=== PATIENT | male | born 1970 | race Caucasian/White ===

== ENCOUNTER 2016-12-06 18:32 | Emergency (ER) | payer SELFPAY ==
[~2016-12-06] VITALS: Ht 172.7 cm; Wt 74.8 kg
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
[2016-12-06] MEDS ORDERED: HYDROCODONE/APAP 10/325MG 1 EA TABLET PO ONE (19:00)
[2016-12-06] MEDS ORDERED: HYDROCODONE/APAP 10/325MG 1 EA TABLET ONE (19:13)
--- NOTE | 2016-12-06 20:07 | NUR ---
CALLED MARY TO READ CT
--- NOTE | 2016-12-06 21:06 | NUR ---
Patient discharged to home in stable condition. Written and verbal after care instructions given. Patient verbalizes understanding of instruction.
[2016-12-06 21:08] VITALS: BP 141/77
== END 2016-12-06 21:09 | disposition home or self-care (01) ==
LOC: ER 18:34
DX: S02.2XXA Fracture of nasal bones, initial encounter for closed fracture (principal); W22.8XXA Striking against or struck by other objects, initial encounter; Y92.89 Other specified places as the place of occurrence of the external cause; Y93.89 Activity, other specified; Y99.8 Other external cause status
CPT/HCPCS: 70486; 99284; A4606; Z7610